=== PATIENT | male | born 2005 | race Caucasian/White ===

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

== ENCOUNTER 2024-12-30 10:27 | Emergency (ER) | payer OTHER ==
[~2024-12-30] VITALS: Ht 175.2 cm; Wt 61.7 kg
[2024-12-30] MEDS ORDERED: Ondansetron Hydrochloride 4 MG/2 ML VIAL IM ONE (11:10)
[2024-12-30] MEDS ORDERED: Ketorolac Tromethamine 30 MG/ML VIAL IM ONE (11:10)
[2024-12-30] MEDS ORDERED: Ondansetron4 MG PO (12:42)
== END 2024-12-30 12:48 | disposition home or self-care (01) ==
LOC: ED 10:27
DX: J06.9 Acute upper respiratory infection, unspecified (principal); Z20.822 Contact with and (suspected) exposure to COVID-19; R11.2 Nausea with vomiting, unspecified; F90.9 Attention-deficit hyperactivity disorder, unspecified type; Z98.890 Other specified postprocedural states

== ENCOUNTER 2025-05-31 11:28 | Emergency (ER) | payer OTHER ==
[~2025-05-31] VITALS: Ht 175.2 cm; Wt 61.7 kg
[~2025-05-31 11:28] MED LIST changes: +Ondansetron4 MG PO
[2025-05-31] MEDS ORDERED: Amoxicillin/Clavulanate Pota 875 MG TAB PO ONE (11:50)
[2025-05-31] MEDS ORDERED: Acetaminophen/Hydrocodone 5 MG/325 MG TABLET PO ONE (11:50)
[2025-05-31] MEDS ORDERED: AMOX-CLAV 875-1 EACH PO (11:51)
== END 2025-05-31 12:02 | disposition home or self-care (01) ==
LOC: ED 11:28
DX: K04.7 Periapical abscess without sinus (principal); K01.1 Impacted teeth; Z98.890 Other specified postprocedural states